=== PATIENT | female | born 1990 | race Caucasian/White ===

== ENCOUNTER → 2021-06-28 | Outpatient (CLI) | payer OTHER ==
--- NOTE | 2021-06-28 12:25 | RAD ---
PQRS Compliance Statement: One or more of the following individualized dose reduction techniques were utilized for this examinat ion: 1. Automated exposure control 2. Adjustment of the mA and/or kV according to patient size 3. Use of iterative reconstruction technique CT HEAD WITHOUT CONTRAST History: Reason: BILATERAL TMJ PAIN, SINUS PAIN AND HEADACHES / Spl. Instructions: / History: Comparison: None. Procedure: Axial images are obtained of the head from the skull base through the vertex without IV co ntrast. Findings: The ventricles and sulci are normal for the patient's age. No mass-effect, midline shift, hemorrhage, extra-axial fluid collection, or obvious acute infarction is identified. Basilar cisterns are patent. Bone windows demonstrate no acute calvarial abnormality. The temporal mandibular joints are visualize d on the sagittal images at the edge of the [id number] and are symmetric and do not demonstrate de generative changes. The visualized paranasal sinuses are clear. Mastoid air cells are well aerated. IMPRESSION: No acute intracranial abnormality. Electronically signed by: Clifton Blood MD (06/28/2021 12:22 PM) [facility]
== END ==
LOC: CT 10:44
PROVIDERS: ATTEND Otolaryngology
DX: R51.9 Headache, unspecified (principal)
CPT/HCPCS: 70450

== ENCOUNTER 2021-08-18 17:09 | Emergency (ER) | payer OTHER ==
[~2021-08-18] VITALS: Ht 177.8 cm; Wt 88.4 kg
[2021-08-18 17:27] VITALS: BP 160/91
[2021-08-18 18:10] LABS: BASO % 1 % (0-3); EOS % 0 % (0-3); HEMATOCRIT 40.1 % (36.0-47.0); HEMOGLOBIN 13.5 g/dL (12.0-15.5); LYMPH # 1.7 x10^3/uL (1.0-4.8); LYMPH % 26 % (24-48); MEAN CORPUSCULAR HEMOGLOBIN 29 pg (25-35); MEAN CORPUSCULAR HGB CONC 34 g/dL (31-37); MEAN CORPUSCULAR VOLUME 88 fL (79-100); MONO # 0.5 x10^3/uL (0.0-1.1); MONO % 8 % (0-9); NEUT # 4.2 x10^3uL (1.8-7.7); NEUT % 66 % (31-73); PLATELET COUNT 187 x10^3/uL (140-400); RED BLOOD COUNT 4.58 x10^6/uL (3.50-5.40); RED CELL DISTRIBUTION WIDTH 13.7 % (11.5-14.5); WHITE BLOOD COUNT 6.4 x10^3/uL (4.0-11.0)
[2021-08-18 18:20] LABS: CALCIUM 8.6 mg/dL (8.5-10.1); CLARITY,URINE HAZY; COLOR,URINE YELLOW; CREATININE 0.5 mg/dL (0.6-1.0); GFR 143.9; GLUCOSE,URINE NEG (NEG); POTASSIUM 3.8 mmol/L (3.5-5.1)
[2021-08-18 18:21] LABS: BACTERIA,URINE FEW /HPF (0-FEW); NITRITE,URINE NEG (NEG); RBC,URINE 0 /HPF (0-2); SQUAMOUS EPITHELIAL CELL,UR FEW /LPF; UROBILINOGEN,URINE 0.2 mg/dL (0.2 mg/dL); WBC,URINE 0 /HPF (0-4)
--- NOTE | 2021-08-18 18:44 | PHYS DOC ---
Past History Past Surgical History: Appendectomy (INDY CHONG APRN) Alcohol Use: None (INDY CHONG APRN) General Adult EDM: Chief Complaint: ABDOMINAL PAIN IN HPI: HPI: Patient is a 31-year-old female who presents with lower back pain and lower abdominal pain while . Patient reports that pain started this morning. She describes pain as a cramping pain. Reports nausea. Denies vomiting or diarrhea. No fever. LMP, 06/14. Patient is G2, P0. Patient reports a miscarriage in April and states "my symptoms were similar". Patient denies vaginal bleeding, odor, frequency. Patient has not been seen by OB. Denies medical history. Denies tobacco or alcohol use. Patient's been fully vaccinated. (INDY CHONG APRN) Review of Systems: Review of Systems: ROS At least 10 ROS systems have been reviewed and are negative except as documented in the HPI. General: Negative except as outlined in HPI above. Skin: Negative except as outlined in HPI above. HEENT: Negative except as outlined in HPI above. Neck: Negative except as outlined in HPI above. Respiratory: Negative except as outlined in HPI above.. Cardiovascular: Negative except as outlined in HPI above. Abdomen: Negative except as outlined in HPI above. : Negative except as outlined in HPI above. Back/MSK: Negative except as outlined in HPI above. Neuro: Negative except as outlined in HPI above. Psych: Negative except as outlined in HPI above. (INDY CHONG APRN) Allergies: Allergies: Allergies Coded Allergies Type Severity Reaction Last Updated Verified No Known Drug Allergies 08/18/21 No (INDY CHONG APRN) Physical Exam: PE: Constitutional: Well developed, well nourished, no acute distress, non-toxic ap pearance. [] HENT: Normocephalic, atraumatic, bilateral external ears normal, oropharynx moist, no oral exudates, nose normal. [] Eyes: PERRLA, EOMI, conjunctiva normal, no discharge. [] Neck: Normal range of motion, no tenderness, supple, no stridor. [] Cardiovascular:Heart rate regular rhythm, no murmur [] Lungs & Thorax: Bilateral breath sounds clear to auscultation [] Abdomen: Bowel sounds normal, soft, lower abdominal tenderness Skin: Warm, dry, no erythema, no rash. [] Back: Lower back tenderness, no CVA tenderness. [] Extremities: No tenderness, no cyanosis, no clubbing, ROM intact, no edema. [] Neurologic: Alert and oriented X 3, normal motor function, normal sensory function, no focal deficits noted. [] Psychologic: Affect normal, judgement normal, mood normal. [] (INDY CHONG APRN) Current Patient Data: Labs: Laboratory Tests Test 08/18/21 17:08 08/18/21 17:45 POC Urine HCG, Qualitative hcg positive (Negative) White Blood Count 6.4 x10^3/uL (4.0-11.0) Red Blood Count 4.58 x10^6/uL (3.50-5.40) Hemoglobin 13.5 g/dL (12.0-15.5) Hematocrit 40.1 % (36.0-47.0) Mean Corpuscular Volume 88 fL (79-100) Mean Corpuscular Hemoglobin 29 pg (25-35) Mean Corpuscular Hemoglobin Concent 34 g/dL (31-37) Red Cell Distribution Width 13.7 % (11.5-14.5) Platelet Count 187 x10^3/uL (140-400) Neutrophils (%) (Auto) 66 % (31-73) Lymphocytes (%) (Auto) 26 % (24-48) Monocytes (%) (Auto) 8 % (0-9) Eosinophils (%) (Auto) 0 % (0-3) Basophils (%) (Auto) 1 % (0-3) Neutrophils # (Auto) 4.2 x10^3uL (1.8-7.7) Lymphocytes # (Auto) 1.7 x10^3/uL (1.0-4.8) Monocytes # (Auto) 0.5 x10^3/uL (0.0-1.1) Eosinophils # (Auto) 0.0 x10^3/uL (0.0-0.7) Basophils # (Auto) 0.0 x10^3/uL (0.0-0.2) Urine Collection Type Unknown Urine Color Yellow Urine Clarity Hazy Urine pH 6.0 Urine Specific [place] >=1.030 Urine Protein Neg (NEG-TRACE) Urine Glucose (UA) Neg mg/dL (NEG) Urine Ketones (Stick) Trace mg/dL (NEG) Urine Blood Neg (NEG) Urine Nitrite Neg (NEG) Urine Bilirubin Small (NEG) Urine Urobilinogen Dipstick 0.2 mg/dL (0.2 mg/dL) Urine Leukocyte Esterase Neg (NEG) Urine RBC 0 /HPF (0-2) Urine WBC 0 /HPF (0-4) Urine Squamous Epithelial Cells Few /LPF Urine Bacteria Few /HPF (0-FEW) Urine Mucus Slight /LPF Sodium Level 136 mmol/L (136-145) Potassium Level 3.8 mmol/L (3.5-5.1) Chloride Level 102 mmol/L (98-107) Carbon Dioxide Level 29 mmol/L (21-32) Anion Gap 5 (6-14) L Blood Urea Nitrogen 13 mg/dL (7-20) Creatinine 0.5 mg/dL (0.6-1.0) L Estimated GFR (Cockcroft-Gault) 143.9 Glucose Level 96 mg/dL (70-99) Calcium Level 8.6 mg/dL (8.5-10.1) Vital Signs: Vital Signs Date Time Temp Pulse Resp B/P (MAP) Pulse Ox O2 Delivery O2 Flow Rate FiO2 08/18/21 17:27 95 18 160/91 (114) 99 (INDY CHONG APRN) EKG: EKG: [] (INDY CHONG APRN) Radiology/Procedures: Radiology/Procedures: []Exam: Ultrasound OB less than 14 weeks Indication: Generalized lower abdominal pain Technique: Real-time grayscale and color Doppler images of the pelvis were obtained by the department gaming cage worker. Comparisons: None FINDINGS: Uterus measures 9.4 x 8.2 x 6.4 cm. Within the endometrium there is a gestational sac with internal yolk sac and pole. heart rate is measured at 168 bpm. [place]-rump length is measured at 1.5 cm. LMP: 06/20/2021 Estimated due date by LMP: 03/27/2022 Estimated due date by ultrasound: 03/31/2022 Gestational age by LMP: 8 weeks 3 days Gestational age by ultrasound: 7 weeks 6 days Right ovary measures 2.2 x 1.3 x 1.4 cm. Left ovary measures 3.7 x 2.2 x 2.4 cm. Vascular flow identified the ovaries bilaterally. IMPRESSION: 1. Single live intrauterine gestation of 8 weeks 3 days by current ultrasound with concordant ultrasound. 2. Dedicated survey is recommended to 18-20 weeks gestation. Electronically signed by: La Burrell MD (08/18/2021 8:02 PM) [facility] (INDY CHONG APRN) Heart Score: C/O Chest Pain: No Risk Factors: Risk Factors: DM, Current or recent (<one month) smoker, HTN, HLP, family history of CAD, obesity. Risk Scores: Score 0 - 3: 2.5% MACE over next 6 weeks - Discharge Home Score 4 - 6: 20.3% MACE over next 6 weeks - Admit for Clinical Observation Score 7 - 10: 72.7% MACE over next 6 weeks - Early Invasive Strategies (INDY CHONG APRN) Course & Med Decision Making: Course & Med Decision Making Pertinent Labs and Imaging studies reviewed. (See chart for details) [] 31-year-old male presents with lower back pain and lower abdominal pain while . Patient is G2, P0. Patient has not been seen by OB. Last menstrual period was beginning of June. Patient thinks she is about 8 weeks . Work-up in ER consisted of CBC, CMP, quant, UA, urine . Transvaginal ultrasound ordered to rule out ectopic. HCG 640002 Urine positive for bacteria. Treating patient with Keflex for asymptomatic bacteremia. Transvaginal ultrasound shows Single live intrauterine gestation of 8 weeks 3 days by current ultrasound with concordant ultrasound. Discussed results with patient. Advised patient to take antibiotic as directed and in full. Patient needs to make a follow-up appointment with OB. Discussed return precautions. Patient is appreciative and okay with discharge plan. (INDY CHONG APRN) Course & Med Decision Making Did not see or evaluate patient. Did not discuss patient with PRE OWNED SALES CONSULTANT. Generally agree with PRE OWNED SALES CONSULTANT's work-up and disposition per note (ROSA CANALES MD) Dragon Disclaimer: Dragon Disclaimer: This electronic medical record was generated, in whole or in part, using a voice recognition dictation system. (INDY CHONG APRN) Departure Departure: Impression: Primary Impression: Bacteriuria, asymptomatic in Disposition: HOME / SELF CARE / HOMELESS Condition: STABLE Referrals: TRISTON VELOZP-BC (PCP) Patient Instructions: Abdominal Pain During , [id number] Additional Instructions: You are seen in the emergency room for abdominal pain. Urine was positive for infection. Please make sure you take the antibiotic as directed. Make sure you are drinking plenty of water. Your ultrasound showed single live intrauterine gestation of 8 weeks and 3 days. Return to emergency room with worsening symptoms or concerns. EMERGENCY DEPARTMENT GENERAL DISCHARGE INSTRUCTIONS Thank you for coming to [facility] (ED) today and trusting us with you care. We trust that you had a positivie experience in our Emergency Department. If you wish to speak to the department management, you may call the director at [phone]. YOUR FOLLOW UP INSTRUCTIONS ARE FOLLOWS: 1. Do you have a private Doctor? If you do not have a private doctor, please ask for a resource list of physicians or clinics that may be able to assist you with follow up care. 2. The Emergency Physician has interpreted your x-rays. The X-Ray specialist will also review them. If there is a change in the findings, you will be notified in 48 hours when at all possible. 3. A lab test or culture has been done, your results will be reviewed and you will be notified if you need a change in treatment. ADDITIONAL INSTRUCTIONS AND INFORMATION: 1. Your care today has been supervised by a physician who is specially trained in emergency care. Many problems require more than one evaluation for a complete diagnosis and treatment. We recommend that you schedule your follow up appointment as recommended to ensure complete treatment of you illness or injury. If you are unable to obtain follow up care and continue to have a problem, or if your condition worsens, we recommend that you return to the ED. 2. We are not able to safely determine your condition over the phone nor are we able to give sound medical advice over the phone. For these safety reasons, if you call for medical advice we will ask you to come to the ED for further evaluation. 3. If you have any questions regarding these discharge instructions please call the ED at [phone]. SAFETY INFORMATION: In the interest of safety, wellness, and injury prevention; we encourage you to wear your sealbelt, if you smoke; quite smoking, and we encourage family to use a protective helmet for bicycling and other sporting events that present an increased risk for head injury. IF YOUR SYMPTOMS WORSEN OR NEW SYMPTOMS DEVELOP, OR YOU HAVE CONCERNS ABOUT YOUR CONDITION; OR IF YOUR CONDITION WORSENS WHILE YOU ARE WAITING FOR YOUR FOLLOW UP APPOINTMENT; EITHER CONTACT YOUR PRIMARY CARE DOCTOR, THE PHYSICIAN WHOSE NAME AND NUMBER YOU WERE GIVEN, OR RETURN TO THE ED IMMEDIATELY. Scripts Cephalexin (CEPHALEXIN) 500 Mg Tablet 1 TAB PO BID for uti for 10 Days, #20 TAB Prov: INDY CHONG APRN 08/18/21 INDY CHONG APRN Aug 18, 2021 18:44 ROSA CANALES MD Aug 18, 2021 22:39
--- NOTE | 2021-08-18 20:04 | RAD ---
Exam: Ultrasound OB less than 14 weeks Indication: Generalized lower abdominal pain Technique: Real-time grayscale and color Doppler images of the pelvis were obtained by the department hatchery laborer. Comparisons: None FINDINGS: Uterus measures 9.4 x 8.2 x 6.4 cm. Within the endometrium there is a gestational sac with internal y olk sac and pole. heart rate is measured at 168 bpm. [place]-rump length is measured at 1.5 cm. LMP: 06/20/2021 Estimated due date by LMP: 03/27/2022 Estimated due date by ultrasound: 03/31/2022 Gestational age by LMP: 8 weeks 3 days Gestational age by ultrasound: 7 weeks 6 days Right ovary measures 2.2 x 1.3 x 1.4 cm. Left ovary measures 3.7 x 2.2 x 2.4 cm. Vascular flow identified the ovaries bilaterally. IMPRESSION: 1. Single live intrauterine gestation of 8 weeks 3 days by current ultrasound with concordant ultras ound. 2. Dedicated survey is recommended to 18-20 weeks gestation. Electronically signed by: La Burrell MD (08/18/2021 8:02 PM) BIB
[2021-08-18] MEDS ORDERED: CEPHALEXIN 250 MG CAPSULE PO ONE (20:15)
[2021-08-18] MEDS ORDERED: CEPH500T PO (20:16)
== END 2021-08-18 20:31 | disposition home or self-care (01) ==
LOC: ER 17:09
DX: O23.91 Unspecified genitourinary tract infection in pregnancy, first trimester (principal); R82.71 Bacteriuria; Z3A.08 8 weeks gestation of pregnancy
CPT/HCPCS: 36415; 76801; 76817; 80048; 81001; 81025; 84702; 85025; 99284